=== PATIENT | male | born 1975 | race Caucasian/White ===

== ENCOUNTER 2021-07-18 18:45 | Inpatient (IN) | payer OTHER ==
[~2021-07-18] VITALS: Ht 175.3 cm; Wt 101.5 kg
[2021-07-18 21:19] LABS: International Normalized Ratio 1.26
[2021-07-18 21:30] LABS: SARS-Cov-2 (COVID-19) PCR, MMC POSITIVE (NEGATIVE)
[2021-07-18 23:48] LABS: Troponin I 0.072 ng/mL (0.000-0.040)
[2021-07-19 00:43] LABS: Source, Urine Catheter
[2021-07-19 00:50] LABS: Appearance, Urine Clear (Clear); Bilirubin, Urine Neg (Neg); Blood, Urine Neg (Neg); Color, Urine Yellow (P-Yellow); Glucose Qualitative, Urine Neg (Neg); Ketones, Urine Neg (Neg); Leukocyte Esterase, Urine Neg (Neg); Nitrite, Urine Neg (Neg); Protein, Urine 3+ (Neg); Specific Gravity, Urine 1.005 (1.003-1.022); Urobilinogen, Urine NORM (Normal)
[2021-07-19 01:09] LABS: Bacteria Not Seen /hpf; Red Blood Cells, Urine Not Seen /hpf (0-2); Squamous Epithelial Cells Not Seen /hpf (Few); White Blood Cells, Urine Not Seen /hpf (0-5)
--- NOTE | 2021-07-19 05:32 | NUR ---
BLOOD PRESSURE ELEVATED AND NOT RESPONDING TO HYDRALZINE. PHYSCIAN CALLED AND ORDEREDS RECV'D. B/P NOT RESPONDING TO SECOND DOSE OF HYDRALZINE, ECTOR DRIP STARTED. TITRATED UP TO MAX DOSE. MULTIPLE EDUCATION AND QUESTIONS ANSWERED CONCERNING DX AND TX PLAN THROUGH NIGHT. RESPONDED WELL TO LASIX WITH OVER 5000 ML URINE OUTPUT.
[2021-07-19 08:22] LABS: BASOPHILS ABSOLUTE AUTO 0.06 K/mm3 (0.00-0.23); BASOPHILS PERCENT AUTO 1 % (0-2); EOSINOPHILS ABSOLUTE AUTO 0.01 K/mm3 (0.00-0.68); EOSINOPHILS PERCENT AUTO 0 % (0-6); Hematocrit 37.3 % (37.0-53.0); Hemoglobin 12.1 g/dL (13.5-17.5); IMMATURE GRAN ABSOLUTE AUTO 0.06 K/mm3 (0.00-0.10); IMMATURE GRAN PERCENT AUTO 1 % (0-1); LYMPHOCYTES ABSOLUTE AUTO 1.99 K/mm3 (0.84-5.20); LYMPHOCYTES PERCENT AUTO 15 % (21-46); MONOCYTES ABSOLUTE AUTO 1.62 K/mm3 (0.16-1.47); MONOCYTES PERCENT AUTO 12 % (4-13); Mean Corpuscular HGB 26.2 pg (26.0-34.0); Mean Corpuscular HGB Conc 32.4 g/dL (31.5-36.5); Mean Corpuscular Volume 81 fL (80-100); Mean Platelet Volume 8.7 fL (9.1-12.4); NEUTROPHILS PERCENT AUTO 72 % (41-73); Platelet Count 447 K/mm3 (150-400); RDW Coefficient Variation 16.3 % (11.7-14.2); RDW Standard Deviation 47.8 fL (35.1-46.3); Red Blood Cell Count 4.61 M/mm3 (4.30-5.90); White Blood Cell Count 13.24 K/mm3 (4.00-11.30)
[2021-07-19 08:43] LABS: Albumin, Blood 1.8 g/dL (3.4-5.0); Albumin/Globulin Ratio 0.4 (0.8-1.8); Bilirubin, Total 1.4 mg/dL (0.1-1.0); Bun/Creatinine Ratio 15.3 (12.0-20.0); Calcium, Blood 8.5 mg/dL (8.5-10.1); Creatinine, Blood 1.37 mg/dL (0.60-1.20); Globulin, Blood 4.3 g/dL (2.2-4.0); Potassium, Blood 3.5 mmol/L (3.5-5.5); Total Protein, Blood 6.1 g/dL (6.4-8.2); Troponin I 0.071 ng/mL (0.000-0.040)
[2021-07-19 14:31] LABS: CHOL/HDL RATIO 3.8; Cholesterol 125 mg/dL (50-200); HDL Cholesterol 33 mg/dL (>39); LDL/HDL RATIO 2.4; Low Density Lipoprotein Chol 81 mg/dL (0-110); Triglycerides 57 mg/dL (30-160); Very Low Density Lipoprot Chol 11 mg/dL (6-32)
--- NOTE | 2021-07-19 15:47 | NUR ---
will meet with patients significant other shakir to answer her questions
--- NOTE | 2021-07-19 17:30 | NUR ---
ECHOCARDIOGRAM COMPLETE
--- NOTE | 2021-07-19 17:56 | NUR ---
AOx4, denies P/N/V this shift, calm/cooperative, diet advanced to renal/2gm salt restriction/1.5l fluid restriction tolerates well, ST 100s, BP HTN hard to control between 140-160s this shift, nitro gtt attempt to titrate down unsucessful despite bridging to PO antihypertensives coreg/lisinopril, nitro lowest at 180mics/min, +2 pulses throughout, edema BLE +4 pitting, 40mg lasix given, echo completed EF 20%, lungs clear/dim, denies SOB on RA, firm/rounded abdomen, intermittant bowel tones non-tender, pt reports previous dark stool before admit continue to monitor.
[2021-07-19 21:34] LABS: Troponin I 0.037 ng/mL (0.000-0.040)
[2021-07-19 23:19] LABS: Albumin, Blood 1.7 g/dL (3.4-5.0); Anion Gap 5 mmol/L (6-16); Blood Urea Nitrogen 21 mg/dL (8-24); Bun/Creatinine Ratio 14.6 (12.0-20.0); CO2, Blood 29 mmol/L (21-32); Calcium, Blood 8.1 mg/dL (8.5-10.1); Chloride, Blood 99 mmol/L (98-108); Creatinine, Blood 1.44 mg/dL (0.60-1.20); Glomerular Filtration Rate 53 (60-); Glucose, Blood 114 mg/dL (70-99); Magnesium, Blood 1.7 mg/dL (1.6-2.4); Potassium, Blood 3.3 mmol/L (3.5-5.5); Sodium, Blood 133 mmol/L (136-145)
[2021-07-20 00:36] LABS: BASOPHILS ABSOLUTE AUTO 0.03 K/mm3 (0.00-0.23); BASOPHILS PERCENT AUTO 0 % (0-2); EOSINOPHILS ABSOLUTE AUTO 0.04 K/mm3 (0.00-0.68); EOSINOPHILS PERCENT AUTO 0 % (0-6); Hematocrit 36.2 % (37.0-53.0); Hemoglobin 11.6 g/dL (13.5-17.5); IMMATURE GRAN ABSOLUTE AUTO 0.06 K/mm3 (0.00-0.10); IMMATURE GRAN PERCENT AUTO 0 % (0-1); LYMPHOCYTES ABSOLUTE AUTO 1.47 K/mm3 (0.84-5.20); LYMPHOCYTES PERCENT AUTO 11 % (21-46); MONOCYTES ABSOLUTE AUTO 1.54 K/mm3 (0.16-1.47); MONOCYTES PERCENT AUTO 11 % (4-13); Mean Corpuscular HGB 26.1 pg (26.0-34.0); Mean Corpuscular Volume 82 fL (80-100); Mean Platelet Volume 8.6 fL (9.1-12.4); NEUTROPHILS ABSOLUTE AUTO 10.48 K/mm3 (1.96-9.15); NEUTROPHILS PERCENT AUTO 77 % (41-73); Platelet Count 383 K/mm3 (150-400); RDW Coefficient Variation 16.4 % (11.7-14.2); RDW Standard Deviation 48.3 fL (35.1-46.3); Red Blood Cell Count 4.44 M/mm3 (4.30-5.90); White Blood Cell Count 13.62 K/mm3 (4.00-11.30)
[2021-07-20 01:03] LABS: Albumin, Blood 1.7 g/dL (3.4-5.0); Anion Gap 5 mmol/L (6-16); Blood Urea Nitrogen 20 mg/dL (8-24); Bun/Creatinine Ratio 14.3 (12.0-20.0); CO2, Blood 28 mmol/L (21-32); Calcium, Blood 8.4 mg/dL (8.5-10.1); Chloride, Blood 99 mmol/L (98-108); Glomerular Filtration Rate 54 (60-); Glucose, Blood 101 mg/dL (70-99); Magnesium, Blood 1.7 mg/dL (1.6-2.4); Potassium, Blood 3.3 mmol/L (3.5-5.5); Sodium, Blood 132 mmol/L (136-145); Troponin I 0.027 ng/mL (0.000-0.040)
--- NOTE | 2021-07-20 11:54 | NUR ---
Review of pt with nursing plan is pci will continue to support family.
[2021-07-20 12:25] LABS: U Amphetamine Screen DETECTED; U Barbituate Screen Not Detected; U Benzodiazapine Screen Not Detected; U Buprenorphine Screen Not Detected; U Cannabinoids Screen Not Detected; U Cocaine Screen Not Detected; U Methadone Screen Not Detected; U Methamphetamine Screen DETECTED; U Opiates Screen Not Detected; U Oxycodone Screen Not Detected; U Phencyclidine Screen Not Detected; U Propoxyphene Screen Not Detected
--- NOTE | 2021-07-20 16:46 | NUR ---
Review of pt with nursing will follow up with family after intervention and plan of care from cardiology.
--- NOTE | 2021-07-20 17:19 | NUR ---
AOx4, denies P/N/V this shift, pupils 2mm, NSR 80/90s no ectopy noted, BP WNL with oral meds, lasix given with moderate results, +3 edema still present BL feet/ankle/legs, heparin gtt increased to 21units/hr, given 20meq for 3.3k, continues 1l NC when sleeping, claer lungs all [place], denies SOB, audible bowels/non-tender, awaiting stool sample for blood occult test, recent reported Hx dark stools, LBM 10/29 per Pt, UDS+ for methamphetamines despite Pt denying, admitted to recent use after the fact, planned angiogram in AM, NPO at midnight, consent signed.
--- NOTE | 2021-07-20 21:15 | NUR ---
ASSUMED CARE REPORT RECEIVED FROM DAY SHIFT RN. PT IN BED, AAOX4. PT DENIES ANY PAIN OR DISCOMFORT. RESPIRATIONS EVEN AND UNLABORED, ON 2L NC. SUPPLEMENTAL OXYGEN FOR COMFORT WHEN PT DOES HAVE COUGHING EPISODES. PT REMAINS ON HEPARIN GTT FOR PE. HEPARIN GTT INFUSING AT 21UNITS/KG/HR. NO ACUTE DISTRESS NOTED. SEE SHIFT ASSESSMENT.
--- NOTE | 2021-07-20 21:21 | NUR ---
PT TO BE TRANSFERRED TO U-2. REPORT GIVEN TO ALONSO VALENTINO.
--- NOTE | 2021-07-20 21:35 | NUR ---
PT TRANSFERRED TO PCU-2 WITH CHICHO GUPTA AND PCT AT BEDSIDE. ALL BELONGINGS TAKEN WITH PT.
[2021-07-21 04:00] LABS: BASOPHILS ABSOLUTE AUTO 0.03 K/mm3 (0.00-0.23); BASOPHILS PERCENT AUTO 0 % (0-2); EOSINOPHILS ABSOLUTE AUTO 0.09 K/mm3 (0.00-0.68); EOSINOPHILS PERCENT AUTO 1 % (0-6); Hematocrit 36.5 % (37.0-53.0); Hemoglobin 11.8 g/dL (13.5-17.5); IMMATURE GRAN ABSOLUTE AUTO 0.04 K/mm3 (0.00-0.10); IMMATURE GRAN PERCENT AUTO 0 % (0-1); LYMPHOCYTES ABSOLUTE AUTO 1.77 K/mm3 (0.84-5.20); LYMPHOCYTES PERCENT AUTO 12 % (21-46); MONOCYTES ABSOLUTE AUTO 2.04 K/mm3 (0.16-1.47); MONOCYTES PERCENT AUTO 14 % (4-13); Mean Corpuscular HGB 26.6 pg (26.0-34.0); Mean Corpuscular HGB Conc 32.3 g/dL (31.5-36.5); Mean Corpuscular Volume 82 fL (80-100); Mean Platelet Volume 9.1 fL (9.1-12.4); NEUTROPHILS ABSOLUTE AUTO 10.82 K/mm3 (1.96-9.15); NEUTROPHILS PERCENT AUTO 73 % (41-73); Platelet Count 430 K/mm3 (150-400); RDW Coefficient Variation 16.7 % (11.7-14.2); RDW Standard Deviation 49.1 fL (35.1-46.3); Red Blood Cell Count 4.43 M/mm3 (4.30-5.90); White Blood Cell Count 14.79 K/mm3 (4.00-11.30)
[2021-07-21 04:26] LABS: Albumin, Blood 1.5 g/dL (3.4-5.0); Anion Gap 6 mmol/L (6-16); Blood Urea Nitrogen 23 mg/dL (8-24); Bun/Creatinine Ratio 15.9 (12.0-20.0); CO2, Blood 29 mmol/L (21-32); Calcium, Blood 8.3 mg/dL (8.5-10.1); Chloride, Blood 99 mmol/L (98-108); Creatinine, Blood 1.45 mg/dL (0.60-1.20); Glomerular Filtration Rate 52 (60-); Glucose, Blood 99 mg/dL (70-99); Magnesium, Blood 1.8 mg/dL (1.6-2.4); Phosphorus, Blood 4.3 mg/dL (2.5-4.9); Potassium, Blood 3.4 mmol/L (3.5-5.5); Sodium, Blood 134 mmol/L (136-145)
--- NOTE | 2021-07-21 06:13 | NUR ---
SHIFT SUMMARY ASSUMED CARE OF PATIENT AT 213 FROM ICU. PT CAME ON 4L NC, TITRATED DOWN TO 2L. MAINTAINING O2 SATS OVER 95%. VSS. HEP GTT INFUSING AT 22 U/KG/HR, 36.5 ML/HR IN RIGHT A/C. ALERT AND ORIENTED X4. HR NSR. VOIDING INDEPENDENTLY WITH BEDSIDE URINAL. NPO SINCE MIDNIGHT. IN BED RESTING WITH CALL ALARM AT SIDE.
--- NOTE | 2021-07-21 18:07 | NUR ---
ASSUMED CARE OF PATIENT THIS AM AT APPROX 0700. PT ALERT, ORIENTED x4; CALM AND COOPERATIVE WITH CARE. PT RESTING IN BED, 1 PERSON ASSIST TO BSC. PT DENIES PAIN, CHEST PAIN, AND NAUSEA. PT REPORTS NONPRODUCTIVE COUGH, STATES FEELS DIZZINESS AND PAIN WITH COUGHING. SPO2 >90% ON 2L O2 VIA NC. SWELLING NOTED TO BLE FROM ANKLE TO HIP AND GENITALIA, PT RECEIVING LASIX. NEEDING STOOL SAMPLE FOR GUAIAC, PRIOR TO ANGIO, PT GIVEN PRUNE JUICE PER REQUEST. VSS. NO OTHER ACUTE CHANGES NOTED. WILL CONTINUE TO MONITOR UNTIL REPORT GIVEN TO ONCOMING RN.
[2021-07-21 19:06] LABS: Stool Occult Blood Guaiac 1 Neg (Neg)
[2021-07-22 04:09] LABS: BASOPHILS ABSOLUTE AUTO 0.03 K/mm3 (0.00-0.23); BASOPHILS PERCENT AUTO 0 % (0-2); EOSINOPHILS PERCENT AUTO 1 % (0-6); Hemoglobin 11.7 g/dL (13.5-17.5); IMMATURE GRAN ABSOLUTE AUTO 0.07 K/mm3 (0.00-0.10); IMMATURE GRAN PERCENT AUTO 1 % (0-1); LYMPHOCYTES ABSOLUTE AUTO 2.16 K/mm3 (0.84-5.20); LYMPHOCYTES PERCENT AUTO 15 % (21-46); MONOCYTES ABSOLUTE AUTO 1.88 K/mm3 (0.16-1.47); MONOCYTES PERCENT AUTO 13 % (4-13); Mean Corpuscular HGB Conc 31.6 g/dL (31.5-36.5); Mean Corpuscular Volume 82 fL (80-100); NEUTROPHILS ABSOLUTE AUTO 10.59 K/mm3 (1.96-9.15); NEUTROPHILS PERCENT AUTO 71 % (41-73); Platelet Count 470 K/mm3 (150-400); RDW Coefficient Variation 16.5 % (11.7-14.2); RDW Standard Deviation 48.9 fL (35.1-46.3); White Blood Cell Count 14.83 K/mm3 (4.00-11.30)
[2021-07-22 04:36] LABS: Albumin, Blood 1.4 g/dL (3.4-5.0); Anion Gap 7 mmol/L (6-16); Blood Urea Nitrogen 26 mg/dL (8-24); Bun/Creatinine Ratio 17.4 (12.0-20.0); CO2, Blood 30 mmol/L (21-32); Calcium, Blood 8.2 mg/dL (8.5-10.1); Chloride, Blood 99 mmol/L (98-108); Creatinine, Blood 1.49 mg/dL (0.60-1.20); Glomerular Filtration Rate 51 (60-); Glucose, Blood 97 mg/dL (70-99); Phosphorus, Blood 3.9 mg/dL (2.5-4.9); Potassium, Blood 3.4 mmol/L (3.5-5.5); Sodium, Blood 136 mmol/L (136-145)
--- NOTE | 2021-07-22 06:23 | NUR ---
SHIFT SUMMARY ASSUMED CARE OF PT AT 1900. PT IS A/OX4. HEART SOUDS REGULAR. PT HAS SWELLING IN HIS LEGS. LUNG SOUNDS ARE VERY DIMINISHED AND TIGHT AT THE BASES. PT THINKS ITS FROM ALL THE FLUID IN HIS LUNGS. PT WAS ON 2L NC AT THE BEGINNING OF THE SHIFT BUT NOW HE IS ON RA WITH SATURATIONS ABOVE 95%.PT USED THE URINAL T/O THE NIGHT. PT HAS BEEN NPO SINCE MIDNIGHT. CALL LIGHT IN REACH, BED IN LOWEST POSTION.
--- NOTE | 2021-07-22 08:58 | NUR ---
ASSSUMPTION OF CARE NOTE PT IS ALERT AND ORIENTED X 4. SPO2 IN MID 90'S ON ROOM AIR. PT UTILIZES BEDSIDE URINAL, BOTH LEFT AND RIGHT AC IV'S ARE SALINE LOCKED. PT DENIED CHEST PAIN/PRESSURE. WILL CONTINUE TO MONITOR. BED IN LOW, CALL LIGHT IN REACH.
--- NOTE | 2021-07-22 11:59 | NUR ---
returned call to [facility] patients SO. Review of pt needs with nursing. Pt to DC will folllow up with SO on his disease process and education so she can hlep him with his care.
--- NOTE | 2021-07-22 16:12 | NUR ---
Breif discussion wtih pr SO regarding his discharge and how important his follow up care is.
--- NOTE | 2021-07-22 19:13 | NUR ---
TRANSFER NOTE REPORT GIVEN TO TIA RN APPROX 1840. THIS NURSE EDUCATED PT ON MEDICATION REGIMEN AND DIET PER PATIENT REQUEST. HANDOUTS SENT UPSTAIRS WITH PATIENT. ALL OF PATIENT BELONGINGS WERE SENT WITH PATIENT. VITAL SIGNS REMAINED STABLE THROUGHOUT SHIFT. PT TRANSFERED VIA WHEELCHAIR, 2L O2 VIA NASAL CANNULA WITH JYOTI LAPEL BASTER.
[2021-07-23 04:34] LABS: BASOPHILS ABSOLUTE AUTO 0.04 K/mm3 (0.00-0.23); BASOPHILS PERCENT AUTO 0 % (0-2); EOSINOPHILS ABSOLUTE AUTO 0.15 K/mm3 (0.00-0.68); EOSINOPHILS PERCENT AUTO 1 % (0-6); Hematocrit 37.6 % (37.0-53.0); IMMATURE GRAN ABSOLUTE AUTO 0.06 K/mm3 (0.00-0.10); IMMATURE GRAN PERCENT AUTO 1 % (0-1); LYMPHOCYTES ABSOLUTE AUTO 2.16 K/mm3 (0.84-5.20); LYMPHOCYTES PERCENT AUTO 17 % (21-46); MONOCYTES ABSOLUTE AUTO 1.39 K/mm3 (0.16-1.47); MONOCYTES PERCENT AUTO 11 % (4-13); Mean Corpuscular HGB 26.4 pg (26.0-34.0); Mean Corpuscular HGB Conc 31.9 g/dL (31.5-36.5); Mean Corpuscular Volume 83 fL (80-100); Mean Platelet Volume 8.4 fL (9.1-12.4); NEUTROPHILS ABSOLUTE AUTO 9.09 K/mm3 (1.96-9.15); NEUTROPHILS PERCENT AUTO 70 % (41-73); Platelet Count 478 K/mm3 (150-400); RDW Coefficient Variation 16.5 % (11.7-14.2); RDW Standard Deviation 49.1 fL (35.1-46.3); Red Blood Cell Count 4.55 M/mm3 (4.30-5.90); White Blood Cell Count 12.89 K/mm3 (4.00-11.30)
[2021-07-23 04:52] LABS: Albumin, Blood 1.5 g/dL (3.4-5.0); Anion Gap 6 mmol/L (6-16); Blood Urea Nitrogen 27 mg/dL (8-24); Bun/Creatinine Ratio 17.3 (12.0-20.0); CO2, Blood 30 mmol/L (21-32); Calcium, Blood 8.5 mg/dL (8.5-10.1); Chloride, Blood 99 mmol/L (98-108); Creatinine, Blood 1.56 mg/dL (0.60-1.20); Glomerular Filtration Rate 48 (60-); Glucose, Blood 140 mg/dL (70-99); Phosphorus, Blood 3.3 mg/dL (2.5-4.9); Potassium, Blood 3.3 mmol/L (3.5-5.5); Sodium, Blood 135 mmol/L (136-145)
[2021-07-23] MEDS ORDERED: Aspirin325 MG PO (11:50)
[2021-07-23] MEDS ORDERED: CARV25 PO (11:51)
[2021-07-23] MEDS ORDERED: BENZ100A PO (11:51)
[2021-07-23] MEDS ORDERED: Prinivil10 MG PO (11:53)
[2021-07-23] MEDS ORDERED: POTCHL20ER PO (11:55)
[2021-07-23] MEDS ORDERED: XARELTO20 MG PO (11:58)
[2021-07-23] MEDS ORDERED: FURO20 PO (11:59)
[2021-07-23] MEDS ORDERED: SPIR25 PO (11:59)
--- NOTE | 2021-07-23 12:48 | NUR ---
DISCHARGE SUMMARY PATIENT HAD NO ACUTE EVENTS THIS SHIFT. VITAL SIGNS REVIEWED. IV AND TELE REMOVED. PATIENT WHEELED OUT BY JENNIFER GUPTA. PATIENTS MOTHER PICKED UP PATIENT WITHOUT INCIDENT. PATIENT VERBALIZED UNDERSTANDING OF DISCHARGE INFORMATION.
== END 2021-07-23 12:42 | disposition home or self-care (01) | DRG 177 ==
LOC: ER 18:45 → ICUE 21:48 → PCU 21:48 → MEDS 21:48 → ICUE 22:55 → PCU 07-20 21:38 → MEDS 07-22 19:00
PROVIDERS: Emergency Medicine; Internal Medicine; Internal Medicine Cardiovascular Disease; ADMIT Internal Medicine
PROC: 8E0ZXY6 Isolation (ICD-10-PCS; principal; 2021-07-18)
DX: U07.1 COVID-19 (principal); I26.99 Other pulmonary embolism without acute cor pulmonale; I21.4 Non-ST elevation (NSTEMI) myocardial infarction; I50.21 Acute systolic (congestive) heart failure; I13.0 Hypertensive heart and chronic kidney disease with heart failure and stage 1 through stage 4 chronic kidney disease, or unspecified chronic kidney disease; I16.1 Hypertensive emergency; R18.8 Other ascites; N17.9 Acute kidney failure, unspecified; E87.6 Hypokalemia; Z98.890 Other specified postprocedural states; Z79.899 Other long term (current) drug therapy; Z88.0 Allergy status to penicillin; N18.30 Chronic kidney disease, stage 3 unspecified; F15.10 Other stimulant abuse, uncomplicated; I50.810 Right heart failure, unspecified
CPT/HCPCS: 36415; 71046; 71260; 74177; 80053; 80061; 80069; 81001; 82272; 82550; 83605; 83735; 83880; 84443; 84484; 85025; 85379; 85610; 85730; 87040; 93005; 93010; 93306; 94660; 96365; 99285-25; A9270; J0360; J1644; J1650; J1940; J1956; J2405; J3480; J7030; Q9967; U0004

== ENCOUNTER → 2021-07-18 | Outpatient (CLI) | payer OTHER ==
[~2021-07-18] MED LIST: OXYACE5T PO
[2021-07-18 17:52] LABS: BASOPHILS ABSOLUTE AUTO 0.07 K/mm3 (0.00-0.23); BASOPHILS PERCENT AUTO 1 % (0-2); EOSINOPHILS ABSOLUTE AUTO 0.09 K/mm3 (0.00-0.68); EOSINOPHILS PERCENT AUTO 1 % (0-6); Hematocrit 41.6 % (37.0-53.0); Hemoglobin 13.5 g/dL (13.5-17.5); IMMATURE GRAN ABSOLUTE AUTO 0.06 K/mm3 (0.00-0.10); IMMATURE GRAN PERCENT AUTO 1 % (0-1); LYMPHOCYTES ABSOLUTE AUTO 2.23 K/mm3 (0.84-5.20); LYMPHOCYTES PERCENT AUTO 18 % (21-46); MONOCYTES ABSOLUTE AUTO 0.93 K/mm3 (0.16-1.47); MONOCYTES PERCENT AUTO 8 % (4-13); Mean Corpuscular HGB 26.8 pg (26.0-34.0); Mean Corpuscular HGB Conc 32.5 g/dL (31.5-36.5); Mean Corpuscular Volume 83 fL (80-100); Mean Platelet Volume 8.8 fL (9.1-12.4); NEUTROPHILS ABSOLUTE AUTO 8.83 K/mm3 (1.96-9.15); NEUTROPHILS PERCENT AUTO 72 % (41-73); Platelet Count 482 K/mm3 (150-400); RDW Coefficient Variation 16.7 % (11.7-14.2); RDW Standard Deviation 48.9 fL (35.1-46.3); Red Blood Cell Count 5.04 M/mm3 (4.30-5.90); White Blood Cell Count 12.21 K/mm3 (4.00-11.30)
[2021-07-18 18:16] LABS: Albumin, Blood 2.6 g/dL (3.4-5.0); Albumin/Globulin Ratio 0.5 (0.8-1.8); Bilirubin, Total 1.3 mg/dL (0.1-1.0); Bun/Creatinine Ratio 13.8 (12.0-20.0); Creatinine, Blood 1.74 mg/dL (0.60-1.20); Globulin, Blood 4.8 g/dL (2.2-4.0); Potassium, Blood 4.2 mmol/L (3.5-5.5); Thyroid Stimulating Hormone 3.986 uIU/mL (0.360-4.800); Total Protein, Blood 7.4 g/dL (6.4-8.2); Troponin I 0.059 ng/mL (0.000-0.040)
== END ==
LOC: LAB SHORT 17:45
PROVIDERS: Chiropractor
DX: R53.83 Other fatigue (principal); Z88.0 Allergy status to penicillin
CPT/HCPCS: 80053; 83880; 84443; 84484; 85025; 85379

== ENCOUNTER 2021-08-23 02:38 | Emergency (ER) | payer OTHER ==
[~2021-08-23] VITALS: Ht 177.8 cm; Wt 88.5 kg
[~2021-08-23 02:38] MED LIST changes: +Aspirin325 MG PO; +BENZ100A PO; +CARV25 PO; +FURO20 PO; +POTCHL20ER PO; +Prinivil10 MG PO; +SPIR25 PO; +XARELTO20 MG PO
[2021-08-23 03:51] LABS: BASOPHILS ABSOLUTE AUTO 0.05 K/mm3 (0.00-0.23); BASOPHILS PERCENT AUTO 1 % (0-2); EOSINOPHILS ABSOLUTE AUTO 0.28 K/mm3 (0.00-0.68); EOSINOPHILS PERCENT AUTO 3 % (0-6); Hematocrit 42.2 % (37.0-53.0); Hemoglobin 14.2 g/dL (13.5-17.5); IMMATURE GRAN ABSOLUTE AUTO 0.04 K/mm3 (0.00-0.10); IMMATURE GRAN PERCENT AUTO 0 % (0-1); LYMPHOCYTES PERCENT AUTO 34 % (21-46); MONOCYTES ABSOLUTE AUTO 1.08 K/mm3 (0.16-1.47); MONOCYTES PERCENT AUTO 11 % (4-13); Mean Corpuscular HGB 26.4 pg (26.0-34.0); Mean Corpuscular HGB Conc 33.6 g/dL (31.5-36.5); Mean Corpuscular Volume 79 fL (80-100); Mean Platelet Volume 8.6 fL (9.1-12.4); NEUTROPHILS ABSOLUTE AUTO 5.17 K/mm3 (1.96-9.15); NEUTROPHILS PERCENT AUTO 52 % (41-73); Platelet Count 335 K/mm3 (150-400); RDW Coefficient Variation 17.2 % (11.7-14.2); RDW Standard Deviation 48.9 fL (35.1-46.3); Red Blood Cell Count 5.37 M/mm3 (4.30-5.90); White Blood Cell Count 10.02 K/mm3 (4.00-11.30)
[2021-08-23 04:38] LABS: Alanine Aminotransfer (ALT/SGP 26 U/L (12-78); Albumin, Blood 3.6 g/dL (3.4-5.0); Albumin/Globulin Ratio 0.8 (0.8-1.8); Alk Phos 86 U/L (50-136); Anion Gap 10 mmol/L (6-16); Aspartate Aminotrans (AST/SGOT 10 U/L (12-37); Bilirubin, Total 0.4 mg/dL (0.1-1.0); Blood Urea Nitrogen 59 mg/dL (8-24); Bun/Creatinine Ratio 28.6 (12.0-20.0); CO2, Blood 26 mmol/L (21-32); Calcium, Blood 9.8 mg/dL (8.5-10.1); Chloride, Blood 99 mmol/L (98-108); Creatinine, Blood 2.06 mg/dL (0.60-1.20); Globulin, Blood 4.4 g/dL (2.2-4.0); Glomerular Filtration Rate 35 (60-); Glucose, Blood 121 mg/dL (70-99); Potassium, Blood 4.7 mmol/L (3.5-5.5); Sodium, Blood 135 mmol/L (136-145); Troponin I <0.015 ng/mL (0.000-0.040)
== END 2021-08-23 06:53 | disposition home or self-care (01) ==
LOC: ER 02:38
PROVIDERS: Student in an Organized Health Care Education/Training Program
DX: R55 Syncope and collapse (principal); S00.81XA Abrasion of other part of head, initial encounter; W18.30XA Fall on same level, unspecified, initial encounter; Z88.0 Allergy status to penicillin; Z79.899 Other long term (current) drug therapy; Z79.82 Long term (current) use of aspirin; I50.21 Acute systolic (congestive) heart failure; I11.0 Hypertensive heart disease with heart failure; I16.1 Hypertensive emergency; I25.2 Old myocardial infarction; Z86.16 Personal history of COVID-19
CPT/HCPCS: 36415; 70450; 71046; 80053; 84484; 85025; 93005; 93010; 99284-25

== ENCOUNTER 2024-11-06 23:37 | Emergency (ER) | payer OTHER ==
[~2024-11-06] VITALS: Ht 175.3 cm; Wt 90.7 kg
[2024-11-07 00:02] LABS: BASOPHILS ABSOLUTE AUTO 0.09 K/mm3 (0.00-0.23); BASOPHILS PERCENT AUTO 1 % (0-2); EOSINOPHILS PERCENT AUTO 2 % (0-6); Hematocrit 35.8 % (37.0-53.0); Hemoglobin 12.1 g/dL (13.5-17.5); IMMATURE GRAN ABSOLUTE AUTO 0.06 K/mm3 (0.00-0.10); IMMATURE GRAN PERCENT AUTO 1 % (0-1); LYMPHOCYTES PERCENT AUTO 19 % (21-46); MONOCYTES ABSOLUTE AUTO 0.66 K/mm3 (0.16-1.47); MONOCYTES PERCENT AUTO 5 % (4-13); Mean Corpuscular HGB 29.4 pg (26.0-34.0); Mean Corpuscular HGB Conc 33.8 g/dL (31.5-36.5); Mean Corpuscular Volume 87 fL (80-100); Mean Platelet Volume 8.4 fL (9.1-12.4); NEUTROPHILS ABSOLUTE AUTO 9.37 K/mm3 (1.96-9.15); NEUTROPHILS PERCENT AUTO 72 % (41-73); Platelet Count 520 K/mm3 (150-400); RDW Standard Deviation 43.4 fL (35.1-46.3); Red Blood Cell Count 4.12 M/mm3 (4.30-5.90); White Blood Cell Count 12.98 K/mm3 (4.00-11.30)
[2024-11-07 00:18] LABS: International Normalized Ratio 1.51; Prothrombin Time Results 15.7 Sec (9.7-11.5)
[2024-11-07 00:24] LABS: Albumin, Blood 2.7 g/dL (3.4-5.0); Albumin/Globulin Ratio 0.6 (0.8-1.8); Bun/Creatinine Ratio 11.1 (12.0-20.0); Calcium, Blood 9.7 mg/dL (8.5-10.1); Creatinine, Blood 2.62 mg/dL (0.60-1.20); Globulin, Blood 4.2 g/dL (2.2-4.0); Potassium, Blood 3.8 mmol/L (3.5-5.5); Total Protein, Blood 6.9 g/dL (6.4-8.2)
[2024-11-07 00:32] LABS: CORONAVIRUS COVID-19 AG Negative (NEGATIVE); INFLUENZA A AG Negative (NEGATIVE); INFLUENZA B AG Negative (NEGATIVE)
[2024-11-07] MEDS ORDERED: Aspirin 81 MG Chew PO ONE (02:15)
[2024-11-07] MEDS ORDERED: Furosemide 10 MG / ML 2ML Vial IV ONE (02:15)
[2024-11-07] MEDS ORDERED: Labetalol HCL 5 MG/ML 4ML Injection (Single Dose) IV ONE (02:15)
[2024-11-07 02:17] LABS: D-Dimer, Quantitative 0.52 mg/L FEU (0.00-0.52)
[2024-11-07] MEDS ORDERED: Azithromycin 500 MG in NS 250 ML IV ONE (02:30)
[2024-11-07] MEDS ORDERED: CefTRIAXone Sodium 1,000 MG in NS 100 ML IV ONE (02:30)
[2024-11-07 03:15] VITALS: BP 156/108
[2024-11-07] MEDS ORDERED: CARV25 PO (03:24)
[2024-11-07] MEDS ORDERED: CEFP200 PO (03:24)
[2024-11-07] MEDS ORDERED: AZIT250 PO (03:24)
[2024-11-07] MEDS ORDERED: Azithromycin 250 MG Tab PO ONE (03:25)
== END 2024-11-07 03:33 | disposition home or self-care (01) ==
LOC: ER 23:37
PROVIDERS: Student in an Organized Health Care Education/Training Program
DX: J18.9 Pneumonia, unspecified organism (principal); I11.0 Hypertensive heart disease with heart failure; I50.21 Acute systolic (congestive) heart failure; I25.2 Old myocardial infarction; Z88.0 Allergy status to penicillin; Z79.82 Long term (current) use of aspirin; Z79.899 Other long term (current) drug therapy; Z79.01 Long term (current) use of anticoagulants
CPT/HCPCS: 36415; 71260; 80053; 83605; 83880; 84484; 85025; 85379; 85610; 85730; 87040; 87428-QW; 93005; 93010; 96365-59; 96375-59; 99285-25; A9270; J0696; J1940; Q9967

== ENCOUNTER 2024-11-09 21:24 | Inpatient (IN) | payer OTHER ==
[~2024-11-09] VITALS: Ht 175.3 cm; Wt 90.7 kg
[~2024-11-09 21:24] MED LIST changes: +AZIT250 PO; +CEFP200 PO
[2024-11-09 22:01] LABS: BASOPHILS ABSOLUTE AUTO 0.11 K/mm3 (0.00-0.23); BASOPHILS PERCENT AUTO 1 % (0-2); EOSINOPHILS ABSOLUTE AUTO 0.36 K/mm3 (0.00-0.68); EOSINOPHILS PERCENT AUTO 3 % (0-6); Hematocrit 36.5 % (37.0-53.0); Hemoglobin 11.9 g/dL (13.5-17.5); IMMATURE GRAN ABSOLUTE AUTO 0.06 K/mm3 (0.00-0.10); IMMATURE GRAN PERCENT AUTO 1 % (0-1); LYMPHOCYTES ABSOLUTE AUTO 3.09 K/mm3 (0.84-5.20); LYMPHOCYTES PERCENT AUTO 24 % (21-46); MONOCYTES ABSOLUTE AUTO 0.81 K/mm3 (0.16-1.47); MONOCYTES PERCENT AUTO 6 % (4-13); Mean Corpuscular HGB 29.3 pg (26.0-34.0); Mean Corpuscular HGB Conc 32.6 g/dL (31.5-36.5); Mean Corpuscular Volume 90 fL (80-100); Mean Platelet Volume 8.6 fL (9.1-12.4); NEUTROPHILS ABSOLUTE AUTO 8.32 K/mm3 (1.96-9.15); NEUTROPHILS PERCENT AUTO 65 % (41-73); Platelet Count 571 K/mm3 (150-400); RDW Coefficient Variation 14.3 % (11.7-14.2); RDW Standard Deviation 46.5 fL (35.1-46.3); Red Blood Cell Count 4.06 M/mm3 (4.30-5.90); White Blood Cell Count 12.75 K/mm3 (4.00-11.30)
[2024-11-09 22:25] LABS: Albumin, Blood 2.5 g/dL (3.4-5.0); Albumin/Globulin Ratio 0.6 (0.8-1.8); Bilirubin, Total 0.4 mg/dL (0.1-1.0); Bun/Creatinine Ratio 11.9 (12.0-20.0); Creatinine, Blood 2.69 mg/dL (0.60-1.20); Globulin, Blood 4.1 g/dL (2.2-4.0); Potassium, Blood 4.2 mmol/L (3.5-5.5); Total Protein, Blood 6.6 g/dL (6.4-8.2)
[2024-11-09] MEDS ORDERED: Ipratropium/Albuterol SulF 2.5-0.5MG/3 ML Amp INH ONE (23:40)
[2024-11-09] MEDS ORDERED: NS 1,000 ML IV SCH (23:40)
[2024-11-09] MEDS ORDERED: CefTRIAXone Sodium 1,000 MG in NS 50 ML IV ONE (23:40)
[2024-11-09] MEDS ORDERED: Azithromycin 500 MG in NS 250 ML IV ONE (23:40)
[2024-11-10] VITALS (9 sets, daily range): BP systolic 127–169; BP diastolic 82–126
[2024-11-10] MEDS ORDERED: HydrALAZINE HCl 20 MG / ML 1ML Vial IV PRN (00:35)
[2024-11-10] MEDS ORDERED: Ipratropium/Albuterol SulF 2.5-0.5MG/3 ML Amp INH PRN (01:10)
[2024-11-10] MEDS ORDERED: Calcium Carbonate 500 MG Tab Chew PO PRN (01:15)
[2024-11-10] MEDS ORDERED: Carvedilol 25 MG Tab PO SCH ×2 (02:00→08:00)
[2024-11-10] MEDS ORDERED: Simethicone 80 MG Chew PO PRN (02:40)
[2024-11-10 04:27] LABS: BASOPHILS ABSOLUTE AUTO 0.08 K/mm3 (0.00-0.23); BASOPHILS PERCENT AUTO 1 % (0-2); EOSINOPHILS ABSOLUTE AUTO 0.14 K/mm3 (0.00-0.68); EOSINOPHILS PERCENT AUTO 1 % (0-6); Hematocrit 35.1 % (37.0-53.0); Hemoglobin 11.2 g/dL (13.5-17.5); IMMATURE GRAN ABSOLUTE AUTO 0.05 K/mm3 (0.00-0.10); IMMATURE GRAN PERCENT AUTO 0 % (0-1); LYMPHOCYTES ABSOLUTE AUTO 2.07 K/mm3 (0.84-5.20); LYMPHOCYTES PERCENT AUTO 18 % (21-46); MONOCYTES PERCENT AUTO 7 % (4-13); Mean Corpuscular HGB 28.6 pg (26.0-34.0); Mean Corpuscular HGB Conc 31.9 g/dL (31.5-36.5); Mean Corpuscular Volume 90 fL (80-100); Mean Platelet Volume 8.8 fL (9.1-12.4); NEUTROPHILS ABSOLUTE AUTO 8.71 K/mm3 (1.96-9.15); NEUTROPHILS PERCENT AUTO 73 % (41-73); Platelet Count 534 K/mm3 (150-400); RDW Coefficient Variation 14.3 % (11.7-14.2); RDW Standard Deviation 46.8 fL (35.1-46.3); Red Blood Cell Count 3.91 M/mm3 (4.30-5.90); White Blood Cell Count 11.85 K/mm3 (4.00-11.30)
[2024-11-10 05:03] LABS: Albumin, Blood 2.5 g/dL (3.4-5.0); Albumin/Globulin Ratio 0.6 (0.8-1.8); Bilirubin, Total 0.6 mg/dL (0.1-1.0); Bun/Creatinine Ratio 12.1 (12.0-20.0); Calcium, Blood 8.7 mg/dL (8.5-10.1); Creatinine, Blood 2.56 mg/dL (0.60-1.20); Magnesium, Blood 2.1 mg/dL (1.6-2.4); Potassium, Blood 4.4 mmol/L (3.5-5.5); Total Protein, Blood 6.5 g/dL (6.4-8.2)
[2024-11-10 05:44] LABS: Adenovirus Not Detected (NOT DETECT); Bordetella pertussis Not Detected (NOT DETECT); Chlamydophila pneumoniae Not Detected (NOT DETECT); Coronavirus 229E Not Detected (NOT DETECT); Coronavirus HKU1 Not Detected (NOT DETECT); Coronavirus NL63 Not Detected (NOT DETECT); Coronavirus OC43 Not Detected (NOT DETECT); Human Metapneumovirus Not Detected (NOT DETECT); Human Rhinovirus/Enterovirus Not Detected (NOT DETECT); Influenza A/2009-H1 Not Detected (NOT DETECT); Influenza A/H1 Not Detected (NOT DETECT); Influenza A/H3 Not Detected (NOT DETECT); Influenza B Not Detected (NOT DETECT); Mycoplasma pneumoniae Not Detected (NOT DETECT); Parainfluenza Virus 1 Not Detected (NOT DETECT); Parainfluenza Virus 2 Not Detected (NOT DETECT); Parainfluenza Virus 3 Not Detected (NOT DETECT); Parainfluenza Virus 4 Not Detected (NOT DETECT); Respiratory Syncytial Virus Not Detected (NOT DETECT); SARS-Cov-2 (COVID-19), BioFire Not Detected (NOT DETECT)
--- NOTE | 2024-11-10 06:09 | NUR ---
SHIFT SUMMARY PT ADMITTED FROM ER FOR PNEUMONIA, CHF EXAC, AND ABD PAIN/BLOATING. PT C/O WORSENING ABDOMINAL BLOATING SINCE COMING IN TO THE ER. TUMS GIVEN WITHOUT RELIEF OF ABD DISCOMFORT. ORDER OBTAINED FOR SIMETHICONE WITH SOME RELIEF TO ABD DISCOMFORT. ORDER ALSO OBTAINED FOR CT TO ABD/PELVIS- AWAITING TEST TO BE DONE. PRN SVN GIVEN PER RT, AND PRN HTN MEDS PER EMAR. PT INTERMITTENTLY MOANING IN ROOM DUE TO ABD DISCOMFORT. S.O., GERALD AT BEDSIDE. PT WITH CONTINUOUS PULSE OX AND O2 SATS > 92%. PT DECLINED TO CHANGE INTO HOSPITAL GOWN, AND IS LYING IN BED WITH JEANS/ T-SHIRT. BED IN LOWEST POSITION, CALL LIGHT WITHIN REACH, SIDERAILS UP X2.
[2024-11-10] MEDS ORDERED: Metoprolol Tartrate 25 MG Tab PO SCH (09:00)
[2024-11-10] MEDS ORDERED: Heparin Sodium 5000 Units/ML 1ML MDV SC SCH (09:00)
[2024-11-10] MEDS ORDERED: Furosemide 10 MG / ML 2ML Vial IV SCH (09:00)
[2024-11-10] MEDS ORDERED: Furosemide 10 MG/ML 4ML Vial IV SCH (09:00)
[2024-11-10] MEDS ORDERED: Aspir 8181 MG PO (12:27)
--- NOTE | 2024-11-10 18:10 | NUR ---
SHIFT SUMMARY PT CONT LEVEL OF CARE. PT NOTED TO BE A&OX4 AND ASSIST X1 WITH AMBULATION. PT NOTED TO BE AT BEDSIDE. PT CONT WITH IV DIURETICS. BP CONT TO REMAIN ELEVATED AND PT WAS STARTED ON NEW BP MEDICATION THIS SHIFT. PT RECEIVED ECHO AND ABD CT THIS SHIFT AWAITING PHYSICIAN TO DISCUSS RESULTS WITH PT AND PT . PT NOTED TO CONT TO VOICE C/O ABD PAIN AND BLOATING PRN SIMETHICONE GIVEN X1 THIS SHIFT WITH EFFECTIVENESS. PT NOTED TO CALL APPROPRIATELY AND IS COOPERATIVE WITH CARE.
[2024-11-10] MEDS ORDERED: NS 250 ML IV PRN (20:55)
[2024-11-10] MEDS ORDERED: CefTRIAXone Sodium 2,000 MG in NS 100 ML IV SCH (21:00)
[2024-11-10] MEDS ORDERED: CefTRIAXone Sodium 1,000 MG in NS 100 ML IV SCH (21:00)
[2024-11-10] MEDS ORDERED: Azithromycin 500 MG in NS 250 ML IV SCH (21:00)
[2024-11-10] MEDS ORDERED: Ondansetron HCl 2 MG / ML 2ML Vial IV PRN (22:40)
[2024-11-11] MEDS ORDERED: Ondansetron HCl 2 MG / ML 2ML Vial IV SCH
--- NOTE | 2024-11-11 03:41 | NUR ---
AT 2215, PT C/O SEVERE NAUSEA, STARTING ABRUPTLY. PROVIDER NOTIFIED AND PRN ZOFRAN ORDERED AND GIVEN WITH SOME RELIEF. PT STILL C/O ABD BLOATING AND DISCOMFORT. PRN SIMETHICONE GIVEN. UPON PT DISCUSSION WITH YARN COMBER, YOKO, IT SEEMED THAT HIS ABDOMINAL ISSUES STARTED AT HOME AFTER HE BEGAN PO AZITHROMYCIN. TONIGHT, HIS SYMPTOMS STARTED WHEN THE IV AZITHROMYCIN WAS ALMOST COMPLETE. MD AND PHARMACIST NOTIFIED. DR. KEENE CAME TO BEDSIDE. AZITHROMYCIN NOW INCLUDED ON ALLERGY LIST. PT CURRENTLY RESTING, STATING ABD DISCOMFORT IS SUBSIDING.
[2024-11-11 03:49] VITALS: BP 167/133
[2024-11-11 05:22] LABS: BASOPHILS ABSOLUTE AUTO 0.09 K/mm3 (0.00-0.23); BASOPHILS PERCENT AUTO 1 % (0-2); EOSINOPHILS ABSOLUTE AUTO 0.16 K/mm3 (0.00-0.68); EOSINOPHILS PERCENT AUTO 1 % (0-6); Hematocrit 34.8 % (37.0-53.0); Hemoglobin 11.4 g/dL (13.5-17.5); IMMATURE GRAN ABSOLUTE AUTO 0.04 K/mm3 (0.00-0.10); IMMATURE GRAN PERCENT AUTO 0 % (0-1); LYMPHOCYTES ABSOLUTE AUTO 2.67 K/mm3 (0.84-5.20); LYMPHOCYTES PERCENT AUTO 24 % (21-46); MONOCYTES ABSOLUTE AUTO 0.85 K/mm3 (0.16-1.47); MONOCYTES PERCENT AUTO 8 % (4-13); Mean Corpuscular HGB 28.8 pg (26.0-34.0); Mean Corpuscular HGB Conc 32.8 g/dL (31.5-36.5); Mean Corpuscular Volume 88 fL (80-100); Mean Platelet Volume 8.9 fL (9.1-12.4); NEUTROPHILS ABSOLUTE AUTO 7.27 K/mm3 (1.96-9.15); NEUTROPHILS PERCENT AUTO 66 % (41-73); Platelet Count 586 K/mm3 (150-400); RDW Coefficient Variation 14.4 % (11.7-14.2); RDW Standard Deviation 45.8 fL (35.1-46.3); Red Blood Cell Count 3.96 M/mm3 (4.30-5.90); White Blood Cell Count 11.08 K/mm3 (4.00-11.30)
[2024-11-11 05:30] VITALS: BP 162/106
[2024-11-11 06:13] LABS: Albumin, Blood 2.5 g/dL (3.4-5.0); Albumin/Globulin Ratio 0.6 (0.8-1.8); Bilirubin, Total 0.5 mg/dL (0.1-1.0); Bun/Creatinine Ratio 13.8 (12.0-20.0); Creatinine, Blood 2.68 mg/dL (0.60-1.20); Potassium, Blood 4.3 mmol/L (3.5-5.5); Total Protein, Blood 6.5 g/dL (6.4-8.2)
--- NOTE | 2024-11-11 07:37 | NUR ---
SHIFT SUMMARY PT DID WELL THROUGH THE NIGHT EXCEPT FOR APPROX 2 HOURS STARTING THE IV AZITHROMYCIN WAS COMPLETING. SEE PRIOR NOTE- AZITHROMYCIN NOW ON ALLERGY LIST. PT SLEPT INTERMITTENTLY THROUGH THE NIGHT. BLOOD PRESSURE REMAINS ELEVATED- MEDICATED PER EMAR. S.O. AT BEDSIDE THROUGH THE NIGHT. BED IN LOWEST POSITION, CALL LIGHT WITHIN REACH, SIDERAILS UP X2.
[2024-11-11 07:56] VITALS: BP 146/95
[2024-11-11] MEDS ORDERED: Acetaminophen 325 MG TABLET PO PRN (08:50)
[2024-11-11] MEDS ORDERED: Sacubitril/Valsartan 24 MG-26 MG Tab PO SCH (09:00)
[2024-11-11] MEDS ORDERED: Empagliflozin 10 MG TAB PO SCH (09:00)
--- NOTE | 2024-11-11 18:20 | NUR ---
SHIFT SUMMARY PT CONT LEVEL OF CARE. PT A&O X4 AND IND WITH AMBULATION. PT STARTED ON NEW MEDICATION TO HELP CONTROL CHF THIS SHIFT. POSSIBLE DC TOMORROW. PT NOTED TO AMBULATE IN HALLS.
[2024-11-11 19:16] VITALS: BP 148/106
[2024-11-11] MEDS ORDERED: Metoprolol Tartrate 50 MG Tab PO SCH (21:00)
--- NOTE | 2024-11-12 04:01 | NUR ---
SHIFT SUMMARY PATIENT HAS SLEPT INTERMITTANTLY THROUGHOUT THE NIGHT. HE IS ANTICIPATING DISCHARGE HOME TODAY. PATIENT HAS NOT HAD ANY COMPLAINTS TONIGHT AND HAS BEEN OUT AMBULATING IN THE HALLWAYS. PATIENT IS ORIENTED X4. HE HAS HIS CALL LIGHT WITHIN REACH. SAFETY PRECAUTIONS ARE BEING MAINTAINED.
[2024-11-12 04:44] VITALS: BP 148/102
[2024-11-12 05:48] LABS: Bun/Creatinine Ratio 14.4 (12.0-20.0); Calcium, Blood 8.7 mg/dL (8.5-10.1); Creatinine, Blood 2.7 mg/dL (0.60-1.20); Potassium, Blood 3.9 mmol/L (3.5-5.5)
[2024-11-12 07:10] VITALS: BP 146/102
[2024-11-12] MEDS ORDERED: FURO40 PO (13:26)
[2024-11-12] MEDS ORDERED: JARDIANCE10 MG PO (13:26)
[2024-11-12] MEDS ORDERED: METO50 PO (13:26)
[2024-11-12] MEDS ORDERED: ENTRESTO 24 MG1 EACH PO (13:27)
--- NOTE | 2024-11-12 14:21 | NUR ---
DISCHARGE SUMMARY PT DC THIS SHIFT DC INSTRUCTION GONE OVER WITH PT AND PT SO, WHOM STATED UNDERSTANDING. PT DECLINED TO HAVE STAFF ESCORT OUT. PT WAS WALKED TO ELEVATOR WITH A STEADY GAIT NOTED.
== END 2024-11-12 14:00 | disposition home or self-care (01) | DRG 281 ==
LOC: ER 21:24 → MEDS 11-10 00:01 → ERHOLD 11-10 00:01 → MEDS 11-10 01:46 → ENPENDDIS 11-12 12:13 → MEDS 11-12 14:00
PROVIDERS: Internal Medicine; Physician Assistant; Student in an Organized Health Care Education/Training Program; ADMIT Internal Medicine
DX: I50.23 Acute on chronic systolic (congestive) heart failure (principal); N17.9 Acute kidney failure, unspecified; I21.A1 Myocardial infarction type 2; N18.4 Chronic kidney disease, stage 4 (severe); U09.9 Post COVID-19 condition, unspecified; I12.9 Hypertensive chronic kidney disease with stage 1 through stage 4 chronic kidney disease, or unspecified chronic kidney disease; I44.7 Left bundle-branch block, unspecified; I16.0 Hypertensive urgency; D63.1 Anemia in chronic kidney disease; F41.9 Anxiety disorder, unspecified; K42.9 Umbilical hernia without obstruction or gangrene; K21.9 Gastro-esophageal reflux disease without esophagitis; I25.2 Old myocardial infarction; Z86.711 Personal history of pulmonary embolism; Z88.0 Allergy status to penicillin; Z79.899 Other long term (current) drug therapy
CPT/HCPCS: 0202U; 36415; 71045; 71046; 74176; 80048; 80053; 83605; 83735; 83880; 84145; 84484; 85025; 93005; 93010; 94640; 94664; 94762; 96365; 96367; 99285-25; A9270; C8929; G0378; J0360; J0456; J0696; J1644; J1940; J2405; J7030; J7050; Q9957